=== PATIENT | female | born 1990 | race Caucasian/White ===

== ENCOUNTER 2021-10-27 04:31 | Emergency (ER) | payer OTHER ==
[2021-10-27] MEDS: Sodium Chloride 0.9% 1,000 ML IV ONE (04:40)
[2021-10-27 05:13] LABS: CHLORIDE,CL 104 mmol/L (98-107); SODIUM,NA 137 mmol/L (136-145)
[2021-10-27 05:16] LABS: ANION GAP 13.1 mmol/L (5-15)
[2021-10-27] MEDS: Sodium Chloride 0.9% 1,000 ML IV SCH (05:42)
[2021-10-27 06:08] VITALS: BP 116/67; PULSE 91
[2021-10-27] MEDS: Iopamidol 612 MG/ML 100 ML Bottle IVPUSH ONE (06:25)
== END 2021-10-27 07:35 | disposition home or self-care (01) ==
LOC: VM.ED 04:31
DX: K52.9 Noninfective gastroenteritis and colitis, unspecified (principal); N18.9 Chronic kidney disease, unspecified; Z88.0 Allergy status to penicillin; Z88.1 Allergy status to other antibiotic agents; Z88.2 Allergy status to sulfonamides
CPT/HCPCS: 36415; 74174; 80053; 81001; 82150; 83690; 85025; 86140; 99284; 99284-25; J7030; Q9967